=== PATIENT | female | born 2000 | race Hispanic/Latino ===

== ENCOUNTER 2020-05-22 12:01 | Outpatient (CLI) | payer OTHER ==
[2020-05-22 23:30] LABS: SARS-CoV-2 MS2 Positive; SARS-CoV-2 N Gene Negative; SARS-CoV-2 S Gene Negative; SARS-CoV-2 by NAA Not Detected (NotDetected); SARS-CoV-2 orf1ab Negative
== END 2020-05-22 12:02 | disposition home or self-care (01) ==
LOC: LABBT 12:01
PROVIDERS: ATTEND Dentist Oral and Maxillofacial Surgery
DX: Z01.812 Encounter for preprocedural laboratory examination (principal); Z20.822 Contact with and (suspected) exposure to COVID-19
CPT/HCPCS: 87635; U0003; U0005

== ENCOUNTER 2020-05-23 19:15 | Inpatient (IN) | payer MEDICAID, OTHER, SELFPAY ==
[2020-05-26] MEDS ORDERED: Ondansetron PF 4 MG/2 ML Vial IVP PRN (19:27)
[2020-05-26] MEDS ORDERED: Ibuprofen 800 MG TAB PO PRN (19:27)
[2020-05-26] MEDS ORDERED: hydrALAZINE 20 MG/ML VIAL SLOW IVP PRN (19:27)
[2020-05-26] MEDS ORDERED: Promethazine HCl 25 MG/ML VIAL IM PRN (19:27)
[2020-05-26] MEDS ORDERED: Methylergonovine 0.2 MG/ML VIAL IM PRN (19:27)
[2020-05-26] MEDS ORDERED: Misoprostol 200 MCG TAB PR PRN (19:27)
[2020-05-26] MEDS ORDERED: NS / Oxytocin 40 units/1000ml 1,000 ML IV PRN (19:27)
[2020-05-26] MEDS ORDERED: Diphenoxylate HCl/Atropine Tablet PO PRN (19:27)
[2020-05-26] MEDS ORDERED: Lidocaine 1% (PF) 30 ML VIAL SC PRN (19:27)
[2020-05-26] MEDS ORDERED: HYDROcodone/Acetaminophen 5/325 mg Tablet PO PRN (19:27)
[2020-05-26] MEDS ORDERED: Butorphanol Tartrate 1 MG/ML VIAL SLOW IVP PRN (19:27)
[2020-05-26] MEDS ORDERED: Carboprost 250 MCG/ML AMP IM PRN (19:27)
[2020-05-26 19:36] VITALS: BMI 26.2
[2020-05-26] MEDS ORDERED: NS w/ Oxytocin 30 units 500 ML IVPB SCH ×2 (19:45)
[2020-05-26] MEDS ORDERED: NS w/ Oxytocin 30 units 500 ML IV PRN (19:48)
[2020-05-26] MEDS: Lactated Ringer's 1,000 ML IV SCH (20:02)
[2020-05-26] MEDS: Misoprostol 100 MCG TAB VAG SCH (20:02)
[2020-05-26 20:05] LABS: Hemoglobin 14.1 g/dL (12.0-16.0); Mean Corpuscular HGB CONC 34.9 g/dL (32.0-36.0); Mean Corpuscular Hemoglobin 31.8 pg (27.0-31.0); Mean Corpuscular Volume 91.1 fL (78.0-98.0); Mean Platelet Volume 9.1 fL (7.4-10.4); Platelet Count 226 thou/uL (130-400); RBC Distribution Width 11.8 % (11.5-14.5); Red Blood Cell (RBC) Count 4.41 mill/uL (4.20-5.40); White Blood Cell (WBC) Count 12.5 thou/uL (4.8-10.8)
[2020-05-26 20:46] LABS: Syphilis Antibody Nonreactive (Nonreactive); Syphilis Antibody Index 0.04 S/CO (<1.00 Non-Reactive)
[2020-05-27] MEDS ORDERED: Fentanyl 4 mcg/Bup 0.1% Cadd 100 ML ONE (00:16)
[2020-05-27] MEDS: Misoprostol 100 MCG TAB VAG SCH ×3 (00:32→06:25)
[2020-05-27] MEDS: Lactated Ringer's 1,000 ML IV SCH ×2 (00:32→04:22)
[2020-05-27 01:28] LABS: HBSAg Index 0.88 S/CO (0-0.99); Hep B Surf Ag Non-Reactive S/CO (NonReactive)
[2020-05-27] MEDS ORDERED: ePHEDrine 50 MG/ML VIAL SLOW IVP PRN (06:05)
[2020-05-27] MEDS ORDERED: diphenhydrAMINE 50 MG/ML VIAL IVP PRN (06:05)
[2020-05-27] MEDS ORDERED: Naloxone HCl 0.4 mg/ml Vial IVP PRN ×2 (06:05)
[2020-05-27] MEDS ORDERED: Acetaminophen 325 MG TAB PO PRN (06:05)
[2020-05-27] MEDS ORDERED: Promethazine HCl 25 MG/ML VIAL IM PRN ×2 (06:05→11:05)
[2020-05-27] MEDS ORDERED: Lactated Ringer's 500 ML IV PRN (06:05)
[2020-05-27] MEDS ORDERED: Ondansetron PF 4 MG/2 ML Vial IVP PRN ×2 (06:05→11:05)
[2020-05-27] MEDS ORDERED: Communication Order-Pharmacy FS SCH (06:15)
[2020-05-27] MEDS ORDERED: Fentanyl 4 mcg/Bupivacaine 0.1% Cassette 100 ML EPIDURAL SCH (06:15)
[2020-05-27] MEDS ORDERED: Lidocaine 1% (PF) 30 ML VIAL ONE (09:37)
[2020-05-27] MEDS ORDERED: Bupivacaine 0.25% HCL 30 ML VIAL ONE (10:44)
[2020-05-27] MEDS ORDERED: Lanolin Ointment 7 GM TUBE TOP PRN (11:05)
[2020-05-27] MEDS ORDERED: NS / Oxytocin 40 units/1000ml 1,000 ML IV SCH (11:05)
[2020-05-27] MEDS ORDERED: hydrALAZINE 20 MG/ML VIAL SLOW IVP PRN (11:05)
[2020-05-27] MEDS ORDERED: Milk Of Magnesia 30 ML UDCUP PO PRN (11:05)
[2020-05-27] MEDS ORDERED: Benzocaine-Menthol 82.5 ML CAN TOP PRN (11:05)
[2020-05-27] MEDS ORDERED: diphenhydrAMINE 25 MG CAP PO PRN (11:05)
[2020-05-27] MEDS ORDERED: Adacel (T-DAP) 0.5 ML SYRINGE IM ONE (11:05)
[2020-05-27] MEDS ORDERED: Bisacodyl 10 MG SUPP PR PRN (11:05)
[2020-05-27] MEDS ORDERED: NS w/ Oxytocin 30 units 500 ML IV SCH (11:30)
[2020-05-27] MEDS: Ibuprofen 800 MG TAB PO SCH ×2 (12:32→20:15)
[2020-05-27] MEDS: Ferrous Sulfate 325 MG TAB PO SCH (16:43)
[2020-05-27] MEDS: HYDROcodone/Acetaminophen 5/325 mg Tablet PO PRN (18:31)
[2020-05-27] MEDS: Docusate Calcium (SURFAK) 240 MG CAP PO SCH (20:16)
[2020-05-28] MEDS: HYDROcodone/Acetaminophen 5/325 mg Tablet PO PRN ×3 (00:20→21:54)
[2020-05-28] MEDS: Ibuprofen 800 MG TAB PO SCH ×3 (05:02→20:51)
[2020-05-28] MEDS: Prenatal Vitamin 1 TAB PO SCH (08:40)
[2020-05-28] MEDS: Ferrous Sulfate 325 MG TAB PO SCH ×2 (08:40→17:18)
[2020-05-28] MEDS: Docusate Calcium (SURFAK) 240 MG CAP PO SCH ×2 (08:40→20:51)
[2020-05-29] MEDS: Ibuprofen 800 MG TAB PO SCH ×2 (06:21→13:57)
[2020-05-29] MEDS: Prenatal Vitamin 1 TAB PO SCH (08:39)
[2020-05-29] MEDS: Docusate Calcium (SURFAK) 240 MG CAP PO SCH (08:39)
[2020-05-29] MEDS: Ferrous Sulfate 325 MG TAB PO SCH (08:41)
[2020-05-29 09:21] VITALS: BP 96/52; TEMP 98.6
[2020-05-29] MEDS: HYDROcodone/Acetaminophen 5/325 mg Tablet PO PRN (14:02)
== END 2020-05-29 16:02 | disposition home or self-care (01) | DRG 807 ==
LOC: L&D 05-26 19:09 → 3SW 05-27 13:41
PROVIDERS: ADMIT Family Medicine; ATTEND Family Medicine
PROC: 10E0XZZ Delivery of Products of Conception, External Approach (ICD-10-PCS; principal; 2020-05-27)
PROC: 10907ZC Drainage of Amniotic Fluid, Therapeutic from Products of Conception, Via Natural or Artificial Opening (ICD-10-PCS; 2020-05-27)
PROC: 3E0P7VZ Introduction of Hormone into Female Reproductive, Via Natural or Artificial Opening (ICD-10-PCS; 2020-05-27)
PROC: 3E033VJ Introduction of Other Hormone into Peripheral Vein, Percutaneous Approach (ICD-10-PCS; 2020-05-27)
PROC: 0W8NXZZ Division of Female Perineum, External Approach (ICD-10-PCS; 2020-05-27)
DX: O48.0 Post-term pregnancy (principal); Z37.0 Single live birth; Z3A.40 40 weeks gestation of pregnancy; Z20.822 Contact with and (suspected) exposure to COVID-19
CPT/HCPCS: 36415; 36416; 51702; 85027; 86780; 86850; 86900; 86901; 87340; J2210; J2405; J2590; S0020